=== PATIENT | male | born 1945 | race Caucasian/White ===

== ENCOUNTER → 2017-03-14 | Outpatient (CLI) | payer MEDICARE, BC ==
--- NOTE | 2017-03-14 13:31 | DRAGON STRESS TEST REPORT ---
EXERCISE CARDIOLITE STRESS TEST USING SINGLE PHOTON EMMISION COMPUTERIZED TOMOGRAPHIC. DATE OF PROCEDURE: March 14, 2017 INDICATION : Chest pain CARDIAC RISK FACTORS: Hypertension, family history of heart disease RESTING EKG: Sinus rhythm, no baseline ST segment changes noted. STRESS EKG: No significant ST segment changes noted at peak exercise. REASON FOR TERMINATION: Shortness of breath and fatigue.. PROCEDURE REPORT: Baseline heart rate 76 beats per minute with blood pressure of 140/80. Patient had no significant complaints. Patient exercised for total of 6 minutes and 04 seconds. Patient stopped exercise because of difficulty with keeping up with the treadmill and symptoms of shortness of breath. Peak heart rate 148, peak blood pressure 188/78 mmHg. CONCLUSIONS: No significant ST segment changes noted at adequate heart rate and blood pressure response. NUCLEAR DATA: At rest the patient was given 13.87 millicuries of technetium 99 sestamibi injected intravenously. As per protocol rest gated SPECT images were obtained. Subsequently the patient was given intravenous LexiScan at a dose of 0.4 mg in 5 mL intravenously, followed by flush with normal saline. Subsequently the stress dose of 42.2 millicuries of technetium 99 sestamibi was injected intravenously. As per protocol stress gated images were obtained. NUCLEAR INTERPRETATION: Both raw and processed data were used for interpretation. Visual, qualitative, computer-generated quantitative data was used. There was good myocardial uptake of technetium compound. Motion artifact and soft tissue attenuations were noted. Increased visceral uptake was noted. No definitive areas of transient perfusion defect noted. No definitive areas of fixed perfusion defect or scars noted. EKG gated imaging showed LV EF at 59 %, rest and stress gated EF similar visually. T. I D. ratio was 0.85. Lung heart ratio noted to be within normal limits 0.27. No significant extracardiac and abnormal radiotracer activities were noted. RV free wall uptake was noted to be WNL. IMPRESSION: Also refer to comments under nuclear interpretation. Also test results needs to be interpreted in the context of pretest probability. 1. There is no definitive scintigraphic evidence of exercised induced ischemia at adequate double product. Patient noted to have average exercise tolerance for patient age. 2. There is no definitive scintigraphic evidence of myocardial infarction/scar. 3. EKG gated imaging shows left ventricular ejection fraction of approximately 59 %. 4. Clinical correlation requested as occasionally single vessel disease or balanced ischemia could be missed. RECOMMENDATIONS: Aggressive risk factor modification, medical therapy. Clinical correlation with echocardiogram derived ejection fraction. No consider cardiology consultation and or follow-up if clinically indicated. I AM AVAILABLE FOR CARDIOLOGY CONSULTATION AND FOLLOWUP IF REQUESTED BY PMD Wale Ng M.D., RHODA Special Education Professor incoming freight clerk, Board certified in cardiovascular diseases, Nuclear cardiology, Echocardiography Cardiac CT and cardiac MRI Ph. [phone] [facility]
== END ==
LOC: RAD 07:40
PROVIDERS: ATTEND Family Medicine
DX: R07.9 Chest pain, unspecified (principal); I10 Essential (primary) hypertension
CPT/HCPCS: 93017; 78452; A9500; Q9969

== ENCOUNTER 2017-04-03 09:35 | Day surgery (SDC) | payer MEDICARE, BC ==
[2017-04-03] MEDS ORDERED: DIPHENHYDRAMINE HCL 50 MG/ML VIAL ONE (09:46)
[2017-04-03] MEDS ORDERED: ONDANSETRON HCL INJ/PF 4 MG/2 ML SDV ONE (09:46)
[2017-04-03] MEDS ORDERED: NALOXONE HCL INJ/PF 0.4 MG/1 ML SDV ONE (09:46)
[2017-04-03] MEDS ORDERED: FLUMAZENIL INJ 0.5 MG/5 ML VIAL ONE (09:46)
[2017-04-03] MEDS ORDERED: EPINEPHRINE INJ 1 MG/10 ML DISP.SYRIN ONE (09:47)
[2017-04-03] MEDS ORDERED: GLUCAGON,HUMAN RECOMB 1 MG INJ ONE (09:47)
[2017-04-03] MEDS: MIDAZOLAM 2 MG/2 ML INJ ONE ×2 (10:08→10:13)
[2017-04-03] MEDS: FENTANYL CITRATE INJ/PF 100 MCG/2 ML AMPUL ONE ×3 (10:10→10:15)
--- NOTE | 2017-04-03 10:25 | Operative Report ---
Operative Report DATE OF SURGERY: 04/03/17 Operative Report: The risks benefits and alternatives of the procedure explained to the patient in detail and informed consent is obtained.A GIF Olympus video scope was inserted into the patient's mouth and hypopharynx, the esophagus is identified intubated and insufflated, the scope was then advanced through the esophagus stomach and duodenum, retroflexion maneuver is done, the esophagus stomach and first and second portions of the duodenum examined PREOPERATIVE DIAGNOSIS: Epigastric pain POSTOPERATIVE DIAGNOSIS: Status post Ghulam-en-Y surgery. Gastritis in the pouch. Esophagitis versus Viramontes's status post biopsy OPERATION: EGD with biopsy SURGEON: MOHINDER GIRALDO ANESTHESIA: Moderate Sedation - 4 mg of Versed, 100 mcg of fentanyl. Conscious sedation monitoring time 30 minutes. TISSUE REMOVED OR ALTERED: Specimens obtained as noted COMPLICATIONS: None. ESTIMATED BLOOD LOSS: None. INTRAOPERATIVE FINDINGS: As described above. PROCEDURE: Patient tolerated procedure well. No immediate postprocedure complications are noted. Patient discharged in good condition. Discharge date 04/03/2017. Discharge diet: Regular. Discharge activity: Regular. 2-3 week follow-up to discuss findings. Patient is instructed to call the office or proceed to the emergency room should there be any further problems or questions. We will wait on biopsies. May need ablation.
[2017-04-03 11:35] VITALS: BP 159/88
== END 2017-04-03 11:35 | disposition home or self-care (01) ==
LOC: END 09:35
PROVIDERS: ATTEND Internal Medicine Gastroenterology
PROC: 0DB48ZX Excision of Esophagogastric Junction, Via Natural or Artificial Opening Endoscopic, Diagnostic (ICD-10-PCS; 2017-04-03)
PROC: 0DB68ZX Excision of Stomach, Via Natural or Artificial Opening Endoscopic, Diagnostic (ICD-10-PCS; principal; 2017-04-03 10:00)
DX: R10.13 Epigastric pain (principal); K29.70 Gastritis, unspecified, without bleeding; D64.9 Anemia, unspecified; I10 Essential (primary) hypertension; G62.9 Polyneuropathy, unspecified; E78.5 Hyperlipidemia, unspecified; K91.5 Postcholecystectomy syndrome
CPT/HCPCS: 43239; 88342 ×2; 88305 ×2; J2250; J3010; J0171; J1200; J1610; J2310; J2405; J3490

== ENCOUNTER 2017-04-16 12:47 | Day surgery (SDC) | payer MEDICARE, BC ==
[2017-04-16] MEDS ORDERED: NALOXONE HCL INJ/PF 0.4 MG/1 ML SDV ONE (12:57)
[2017-04-16] MEDS ORDERED: DIPHENHYDRAMINE HCL 50 MG/ML VIAL ONE (12:57)
[2017-04-16] MEDS ORDERED: ONDANSETRON HCL INJ/PF 4 MG/2 ML SDV ONE (12:57)
[2017-04-16] MEDS ORDERED: MIDAZOLAM 2 MG/2 ML INJ ONE ×2 (12:57)
[2017-04-16] MEDS ORDERED: FLUMAZENIL INJ 0.5 MG/5 ML VIAL ONE (12:58)
[2017-04-16] MEDS ORDERED: GLUCAGON,HUMAN RECOMB 1 MG INJ ONE (12:58)
[2017-04-16] MEDS ORDERED: EPINEPHRINE INJ 1 MG/10 ML DISP.SYRIN ONE (12:58)
[2017-04-16] MEDS: FENTANYL CITRATE INJ/PF 100 MCG/2 ML AMPUL ONE ×2 (13:14→13:16)
--- NOTE | 2017-04-16 13:48 | Operative Report ---
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 Conscious sedation monitoring time 30 minutes. TISSUE REMOVED OR ALTERED: None. COMPLICATIONS: None. ESTIMATED BLOOD LOSS: None. INTRAOPERATIVE FINDINGS: As described above. PROCEDURE: Patient tolerated procedure well. No immediate postprocedure complications are noted. Patient discharged in good condition. Discharge date 04/16/2017. Discharge diet: Regular. Discharge activity: Regular. 6 week follow-up to determine resolution of the Viramontes's Patient is instructed to call the office or proceed to the emergency room should there be any further problems or questions
[2017-04-16 14:26] VITALS: BP 112/69
== END 2017-04-16 14:25 | disposition home or self-care (01) ==
LOC: END 12:47
PROVIDERS: ATTEND Internal Medicine Gastroenterology
PROC: 0D558ZZ Destruction of Esophagus, Via Natural or Artificial Opening Endoscopic (ICD-10-PCS; principal; 2017-04-16 13:00)
DX: K22.710 Barrett's esophagus with low grade dysplasia (principal); I10 Essential (primary) hypertension; E78.5 Hyperlipidemia, unspecified; D64.9 Anemia, unspecified
CPT/HCPCS: 43270; J2250; J3010; J0171; J1200; J1610; J2310; J2405; J3490

== ENCOUNTER 2017-08-26 10:00 | Day surgery (SDC) | payer MEDICARE, BC ==
[~2017-08-26 10:00] MED LIST: PROPOFOL INJ 200 MG/20 ML VIAL IV ONE
[2017-08-26] MEDS ORDERED: SIMETHICONE 80 MG TAB.CHEW ONE (11:32)
[2017-08-26 12:11] VITALS: BP 123/73
--- NOTE | 2017-08-26 12:56 | Operative Report ---
Operative Report DATE OF SURGERY: 08/26/17 Operative Report: The risks, benefits and alternatives of the procedure including risks of bleeding, perforation requiring surgery are explained to the patient in detail and informed consent was obtained. The patient is taken back to the endoscopy suite and placed in the left, lateral decubital position. Timeout was called. Propofol medications administered. A rectal examination was done which did not reveal any masses, tears or fissures. An Olympus videoscope was inserted into the patient's rectum. The scope was then carefully advanced all the way to the cecum. The cecum was identified by the usual anatomical landmarks including the ileocecal valve as well as the appendiceal office. Photodocumentation is obtained. Prep was good. Scope was then sequentially pulled back via the various segments of the colon including the ascending colon, hepatic flexure, transverse colon, splenic flexure, descending colon finding to the rectosigmoid portions of the colon. Retroflexion maneuvers performed. PREOPERATIVE DIAGNOSIS: Change in bowel habits. Abdominal distention POSTOPERATIVE DIAGNOSIS: Mild right-sided colon inflammation status post biopsy. Redundancy of colon especially of the descending colon area OPERATION: Colonoscopy with biopsy SURGEON: MOHINDER GIRALDO ANESTHESIA: LMAC TISSUE REMOVED OR ALTERED: As noted above. COMPLICATIONS: None. ESTIMATED BLOOD LOSS: None. INTRAOPERATIVE FINDINGS: As noted above. PROCEDURE: Patient tolerated procedure well. No immediate postprocedure complications are noted. Patient discharged in good condition. Discharge date 08/26/2017. Discharge diet: Regular. Discharge activity: Regular. 2-3 week follow-up to discuss findings. Patient is instructed call the office or proceed to the emergency room should there be any further problems or questions. We will wait on pathology.
== END 2017-08-26 11:55 | disposition home or self-care (01) ==
LOC: END 10:00
PROVIDERS: ATTEND Internal Medicine Gastroenterology
PROC: 0DBF8ZX Excision of Right Large Intestine, Via Natural or Artificial Opening Endoscopic, Diagnostic (ICD-10-PCS; principal; 2017-08-26 12:30)
DX: K52.9 Noninfective gastroenteritis and colitis, unspecified (principal); I10 Essential (primary) hypertension; E78.5 Hyperlipidemia, unspecified; D64.9 Anemia, unspecified; G62.9 Polyneuropathy, unspecified; Z87.442 Personal history of urinary calculi; Z79.899 Other long term (current) drug therapy
CPT/HCPCS: 45380; 88305 ×2; A9270; J2704; 811

== ENCOUNTER → 2018-06-09 | Day surgery (SDC) | payer MEDICARE, BC ==
[~2018-06-09] MED LIST changes: +BUPIVACAINE HCL 0.5 % INJ/PF 30 ML SDV ONE; +METHYLPREDNISOLONE ACETATE INJ 80 MG/1 ML VIAL ONE; -PROPOFOL INJ 200 MG/20 ML VIAL IV ONE
--- NOTE | 2018-06-09 15:53 | RADIOLOGY REPORT (SQ) ---
EXAM DESCRIPTION: INJECT/ASPIR HIP/SHLDR/KNEE; FLUORO/NEEDLE PLACEMENT COMPLETED DATE/TIME: 06/09/2018 2:35 pm REASON FOR STUDY: M19.011 PRIMARY OSTEOARTHRITIS, RIGHT SHOULDER M19.011 PRIMARY OSTEOARTHRITIS, RI GHT SHOULDER COMPARISON: None. FLUOROSCOPY TIME: 11 seconds 1 digital fluoroscopic image saved to PACS. LIMITATIONS: None. PROCEDURE: SITE OF INJECTION: Right posterior glenohumeral joint LOCALIZING CONTRAST TYPE AND DOSE: 1 mL Omnipaque 300 MEDICATION TYPE AND DOSE: 80 mg of Depo-Medrol, 5 mL of 0.5% bupivacaine Using local anesthesia and sterile technique with fluoroscopic guidance, a 22 gauge spinal needle was advanced into the joint. Iodinated contrast was injected to verify intraarticular placement. This w as followed by therapeutic injection of the indicated medications. The needle was removed. There we re no immediate complications. Preprocedure pain level: 3/10. Postprocedure pain level: 1/10. IMPRESSION: THERAPEUTIC INJECTION OF THE RIGHT GLENOHUMERAL JOINT ABOVE. COMMENT: Patient medication list reviewed: Yes- Quality ID# [id number]:Eligible professional attests to doc umenting in the medical record they obtained, updated, or reviewed the patient's current medications. . Quality ID 145: Final reports for procedures using fluoroscopy that document radiation exposure saige kizzy, or exposure time and number of fluorographic images (if radiation exposure indices are not avail able) TECHNICAL DOCUMENTATION: JOB ID: [id number] [employer]- All Rights Reserved Reading location - IP/workstation name: [facility]
--- NOTE | 2018-06-09 15:53 | RADIOLOGY REPORT (SQ) ---
EXAM DESCRIPTION: INJECT/ASPIR HIP/SHLDR/KNEE; FLUORO/NEEDLE PLACEMENT COMPLETED DATE/TIME: 06/09/2018 2:35 pm REASON FOR STUDY: M19.011 PRIMARY OSTEOARTHRITIS, RIGHT SHOULDER M19.011 PRIMARY OSTEOARTHRITIS, RI GHT SHOULDER COMPARISON: None. FLUOROSCOPY TIME: 11 seconds 1 digital fluoroscopic image saved to PACS. LIMITATIONS: None. PROCEDURE: SITE OF INJECTION: Right posterior glenohumeral joint LOCALIZING CONTRAST TYPE AND DOSE: 1 mL Omnipaque 300 MEDICATION TYPE AND DOSE: 80 mg of Depo-Medrol, 5 mL of 0.5% bupivacaine Using local anesthesia and sterile technique with fluoroscopic guidance, a 22 gauge spinal needle was advanced into the joint. Iodinated contrast was injected to verify intraarticular placement. This w as followed by therapeutic injection of the indicated medications. The needle was removed. There we re no immediate complications. Preprocedure pain level: 3/10. Postprocedure pain level: 1/10. IMPRESSION: THERAPEUTIC INJECTION OF THE RIGHT GLENOHUMERAL JOINT ABOVE. COMMENT: Patient medication list reviewed: Yes- Quality ID# [id number]:Eligible professional attests to doc umenting in the medical record they obtained, updated, or reviewed the patient's current medications. . Quality ID 145: Final reports for procedures using fluoroscopy that document radiation exposure saige kizzy, or exposure time and number of fluorographic images (if radiation exposure indices are not avail able) TECHNICAL DOCUMENTATION: JOB ID: [id number] [employer]- All Rights Reserved Reading location - IP/workstation name: [facility]
== END ==
LOC: RAD 13:30
PROVIDERS: ATTEND Family Medicine
DX: M19.011 Primary osteoarthritis, right shoulder (principal)
CPT/HCPCS: 20610; 77002; J3490; J1040

== ENCOUNTER 2020-03-16 07:24 | Day surgery (SDC) | payer MEDICARE, BC ==
[2020-03-11 11:22] LABS: HEMATOCRIT 42.9 % (37.9-51.0); HEMOGLOBIN 14.6 g/dL (13.5-17.0); MEAN CORPUSCULAR HEMOGLOBIN 29.1 pg (27.0-33.4); MEAN CORPUSCULAR HGB CONC 34.2 g/dL (32.0-36.0); MEAN CORPUSCULAR VOLUME 85 fl (80-97); PLATELET COUNT 247 10^3/uL (150-450); RED BLOOD COUNT 5.03 10^6/uL (4.35-5.55); RED CELL DISTRIBUTION WIDTH 13.2 % (11.5-14.0); WHITE BLOOD COUNT 3.8 10^3/uL (4.0-10.5)
[2020-03-11 11:50] LABS: ANION GAP 8 (5-19); BLOOD UREA NITROGEN 19 mg/dL (7-20); CALCIUM 9.5 mg/dL (8.4-10.2); CARBON DIOXIDE 30 mmol/L (22-30); CHLORIDE 101 mmol/L (98-107); GLUCOSE 111 mg/dL (75-110); POTASSIUM 4.5 mmol/L (3.6-5.0)
[~2020-03-16 07:24] MED LIST changes: -BUPIVACAINE HCL 0.5 % INJ/PF 30 ML SDV ONE; +CEFAZOLIN 1 GM/D5W RTU 1 GM/50 ML RTUPB IV ONE; +CEFAZOLIN 1 GM/D5W RTU 1 GM/50 ML RTUPB IV PRN; +LACTATED RINGERS 1000 ML IV PRN; +LIDOCAINE 0.5% INJ-PF (5 MG/ML) 50 ML SDV SUBCUT PRN; -METHYLPREDNISOLONE ACETATE INJ 80 MG/1 ML VIAL ONE
[2020-03-16] MEDS ORDERED: FENTANYL CITRATE INJ/PF 250 MCG/5 ML AMPULE ONE (09:17)
[2020-03-16] MEDS ORDERED: MIDAZOLAM 2 MG/2 ML INJ ONE (09:18)
[2020-03-16] MEDS ORDERED: EPHEDRINE SULFATE INJ 50 MG/1 ML AMPULE ONE (09:18)
[2020-03-16] MEDS ORDERED: PROPOFOL INJ 200 MG/20 ML VIAL IV ONE (09:18)
[2020-03-16] MEDS ORDERED: BUPIVACAINE HCL 0.25 % INJ/PF (2.5 MG/1 ML) 30 ML VIAL ONE (09:34)
[2020-03-16] MEDS ORDERED: BUPIVACAINE INJ/PF LIPOSOME/PF 266 MG/20 ML SDV ONE (09:34)
[2020-03-16] MEDS ORDERED: ROPIVACAINE HCL 0.5% INJ/PF (5 MG/1 ML) 30 ML SDV ONE (09:36)
[2020-03-16] MEDS ORDERED: DIPHENHYDRAMINE HCL 50 MG/ML VIAL IV PRN (10:30)
[2020-03-16] MEDS ORDERED: ONDANSETRON HCL INJ/PF 4 MG/2 ML SDV IV PRN (10:30)
[2020-03-16] MEDS ORDERED: FENTANYL CITRATE INJ/PF 100 MCG/2 ML AMPUL IV PRN ×3 (10:30)
[2020-03-16] MEDS ORDERED: PROMETHAZINE HCL INJ 25 MG/1 ML VIAL IV PRN (10:30)
[2020-03-16] MEDS ORDERED: MORPHINE SULFATE 10 MG/ML INJ IV PRN (10:30)
[2020-03-16] MEDS ORDERED: MEPERIDINE HCL/PF INJ 25 MG/1 ML DISP.SYRIN IV PRN (10:30)
--- NOTE | 2020-03-16 11:33 | Operative Report ---
Operative Report DATE OF SURGERY: 03/16/20 PREOPERATIVE DIAGNOSIS: Left inguinal hernia POSTOPERATIVE DIAGNOSIS: Same, indirect OPERATION: 1. Left inguinal herniorrhaphy with large [employer] Ethicon Prolene mesh. 2. Deployment of Exparel into the subcutaneous tissue SURGEON: MARTITA MCDONNELL 1ST PASSENGER BOOKING CLERK: KAREEN ARMENDARIZ ANESTHESIA: GA TISSUE REMOVED OR ALTERED: Cord lipoma COMPLICATIONS: None ESTIMATED BLOOD LOSS: Scant INTRAOPERATIVE FINDINGS: See below PROCEDURE: Patient was seen in the preop holding area with a left inguinal region was marked by Dr. Mcdonnell. Patient was taken to the main operating room where general anesthesia was induced. The abdominal wall was clipped of hair, and the anesthesia team deployed a regional abdominal wall block. The left inguinal area and scrotal area was prepped and draped in sterile fashion Surgical plan and surgical timeout were conducted. Marking was made on the skin for planned left inguinal herniorrhaphy. The skin was anesthetized with quarter percent Marcaine then incised with a #10 blade approximately 6 and half centimeters in length. Subcutaneous tissue and Scot's fascia divided with electrocautery. Deeper tissue anesthetized with quarter percent Marcaine. The external oblique aponeurosis was incised along the direction of its fibers with a #10 blade. The contents of the inguinal canal were now mobilized. The ilioinguinal nerve was identified and preserved throughout the dissection. Superior and inferior fascial flaps were developed bluntly. Contents of the inguinal canal were now surrounded with a [place] loop drain. The findings are significant for a weekend inguinal floor in the direct space but no discrete hernia. We now interrogated the contents within the loop of the [place] drain. The findings here were consistent with a moderate sized cord lipoma, and a indirect hernia sac with a fibro-fatty extension.. We dissected the lipoma off of the cord structures, and amputated it several centimeters away from the abdominal wall, ligating its pedicle with a 2-0 Vicryl suture. The fibrofatty extension and indirect sac were dissected free of surrounding structures and reduced into the retroperitoneal cavity. We now opened up the retroperitoneal space bluntly with index finger and sponge dissection. We brought onto the field a large Ethicon [facility] Prolene hernia system, not , and deployed the inner component into the retroperitoneal space by explaining it out circumferentially. The external component was trimmed to an appropriate configuration to reconstruct the inguinal floor. Using approximately 8-0 PDS sutures, the external layer was sewed to Poupart's ligament and conjoined tendon, sparing the ilioinguinal nerve. We cut in upside down U in the external layer to accommodate the cord structures. At the conclusion of mesh implantation, we were satisfied with the reconstruction of the inguinal floor. The external oblique aponeurosis was closed with 2-0 Vicryl, Scot's fascia with 3-0 Vicryl, and skin approximated with's kin glue. 30 cc of dilute Exparel was deployed into the subcutaneous tissues. Patient tolerated the procedure well, extubated, and taken to recovery in stable condition The physician commissary assistant, Ms. Andujar, provided assistance during this case by: retracting tissue, instillation of local anesthesia and closure of skin incisions.
[2020-03-16] MEDS ORDERED: OXYCODONE-ACETAMINOPHEN 5-325 MG TABLET PO PRN (11:36)
--- NOTE | 2020-03-16 11:36 | Discharge Summary ---
Discharge Summary (SDC) - Discharge Final Diagnosis: Left inguinal hernia Date of Surgery: 03/16/20 Discharge Date: 03/16/20 Condition: Good Treatment or Instructions: [facility] [address], [place] [address] Discharge Instructions: Open Abdominal Procedures (Hernia, Bowel Surgery) 1.General Information: a. DO NOT DRIVE a car or operative machinery for 1-2 weeks or as long as taking Narcotic pain medication. b. DO NOT consume alcohol, tranquilizers, sleeping medication, or any non- prescribed medication for 24 hours unless approved by your doctor or as long as taking pain medication. c. DO NOT make important decisions or sign any important papers for the first 24 hours after surgery. d. When discharged home the same day as surgery have a responsible person with you the first night. 2.Activity Restriction: 6 weeks a. Avoid heavy lifting (> 10-15 lbs), straining abdominal muscles and sports, mowing lawn, vacuum tube cleaner and bending over a lot. b. Walking is important to avoid blood clots in the legs and deep breathing can prevent pneumonia. c. If it fine to go for walks, up and down steps, and ride in a car. 3.Treatment: a. You may shower 24 hours after surgery and shower then daily is fine, but you should not bathe in a tub or go swimming for 2 weeks. Do not remove or pick at skin glue. It will fall off on its own. You may cover the wound with gauze and tape if it is more comfortable. c. Do not use oils, powders, or lotion on your incision. 4.Medications: a. You may take prescription tablets for pain if needed, one every 6 hours (Toradol___). Do not take additional NSAIDs (ibuprofen, advil, aleve, goodies powder, ect) with Toradol. You may take Tylenol with Toradol. c. You may resume all normal medications unless a change is specified by your doctors. 5.Diet: a. If going home the same day as surgery start with clear liquids, and if you do well then advance to normal foods low inf fat and protein. Smaller portion size may be isaacs the first night. b. When discharged after hospital stay you may resume a normal diet. 6.Notify Physician If: a. Pain is not relieved by pain medication b. Persistent nausea and vomiting c. Chills, fever (above 101) d. Persistent bleeding or swelling at the operative site e. Unable to urinate for 6-8 hours f. Increased redness, drainage, or foul smelling discharge from incision 7. Follow Up Care: a. Please call our office to schedule an appointment with your doctor for 2 weeks. In the event of any postoperative problems or questions you may call our office during business hours or the On-Call surgeon through the payroll machine operator at [facility]. [facility] [phone] [facility] [phone] (Ask for the surgeon superintendent drilling and production) b. I understand the instructions for my postoperative care as described above and a copy has been given to me. Witness Patient/Significant Other Date Prescriptions: Ketorolac Tromethamine [Toradol 10 mg Tablet] 10 mg PO Q6HP PRN #20 tablet PRN Reason: Referrals: IMAN DURAN MD [Primary Care Provider] - Discharge Diet: As Tolerated Discharge Activity: Balance Activity w/Rest, No Lifting Over 10 Pounds, No Lifting/Push/Pulling, Walk Frequently Report the Following to Your Physician Immediately: Nausea, Vomiting, Increase in Pain, Fever over 101 Degrees, Unusual Bleeding, Redness, Swelling, Warmth, Increased Soreness, Drainage-Foul Smelling
[2020-03-16] MEDS ORDERED: OXYCODONE-ACETAMINOPHEN 5-325 MG TABLET ONE (12:12)
[2020-03-16 13:16] VITALS: BP 134/76
[2020-03-16] MEDS ORDERED: SUCCINYLCHOLINE CHLORIDE INJ 200 MG/10 ML VIAL ONE (14:30)
[2020-03-16] MEDS ORDERED: DEXAMETHASONE SOD PHOSPHATE INJ 4 MG/1 ML VIAL ONE (14:30)
[2020-03-16] MEDS ORDERED: ONDANSETRON HCL INJ/PF 4 MG/2 ML SDV ONE (14:30)
== END 2020-03-16 13:05 | disposition home or self-care (01) ==
LOC: OROUT 07:24
PROVIDERS: ATTEND Surgery
DX: K40.90 Unilateral inguinal hernia, without obstruction or gangrene, not specified as recurrent (principal); K21.9 Gastro-esophageal reflux disease without esophagitis; K91.1 Postgastric surgery syndromes; E78.5 Hyperlipidemia, unspecified; D64.9 Anemia, unspecified; I83.90 Asymptomatic varicose veins of unspecified lower extremity; Z90.3 Acquired absence of stomach [part of]; Z87.891 Personal history of nicotine dependence; Z79.899 Other long term (current) drug therapy; R01.1 Cardiac murmur, unspecified; N40.0 Benign prostatic hyperplasia without lower urinary tract symptoms; G57.92 Unspecified mononeuropathy of left lower limb; Z03.818 Encounter for observation for suspected exposure to other biological agents ruled out
CPT/HCPCS: 36415; 85027; 80048; 88304 ×2; 49505; C1781; U0003; J2795; J2250; J0690; J1100; J3490; J3010; A9270; J0330; J2405; J2704; C9290; C9803; 64486; 76942; 830; 87635

== ENCOUNTER 2020-06-03 19:56 | Emergency (ER) | payer MEDICARE, BC ==
[2020-06-03 20:21] VITALS: BP 141/69
[2020-06-03] MEDS ORDERED: NORMAL SALINE 1000 ML 1,000 ML IV ONE (21:51)
--- NOTE | 2020-06-03 21:52 | ER Document Report ---
ED Medical Screen (RME) - General Chief Complaint: Nausea Stated Complaint: NAUSEA/POST OP ISSUES Time Seen by Provider: 06/03/20 21:41 Primary Care Provider: IMAN DURAN MD [Primary Care Provider] - Follow up as needed TRAVEL OUTSIDE OF THE [place] IN LAST 30 DAYS: No - HPI Notes: Patient is a 75 y/o male who presents for nausea and vomiting that began earlier today. Patient had a neck fusion done on 05/31/[address] Silveira at [facility] Since his surgery he has had swelling to the sides of his neck making it difficult for him to eat or drink. They called Dr. Silveira today and patient was prescribed steroids. Earlier this evening he began to vomit and his became concerned as he has not been eating or drinking much these past few days. Patient denies chest pain and shortness of breath. - Related Data Allergies/Adverse Reactions: No Known Allergies Allergy (Verified 06/03/20 21:21) Past Medical History - Past Medical History Cardiac Medical History: Denies: Hx Coronary Artery Disease, Hx Heart Attack, Hx Hypertension Pulmonary Medical History: Reports: Hx Bronchitis, Hx Pneumonia - HX Denies: Hx Asthma, Hx COPD Neurological Medical History: Denies: Hx Cerebrovascular Accident, Hx Seizures GI Medical History: Reports: Hx Gastritis, Hx Gastroesophageal Reflux Disease, Hx Hepatitis - 6 YEARS,DOESNT KNOW WHAT KIND,"KIND WHERE COULDNT HAVE SOFT CANDY,ONLY HARD, Hx Hiatal Hernia - SORT OF,PARALYZED STOMACH FROM SX, Hx Ulcer - BLEEDING Musculoskeltal Medical History: Reports Hx Arthritis, Reports Hx Musculoskeletal Trauma Psychiatric Medical History: Reports: Hx Depression Infectious Medical History: Reports: Hx Hepatitis - 6 YEARS,DOESNT KNOW WHAT KIND,"KIND WHERE COULDNT HAVE SOFT CANDY,ONLY HARD Past Surgical History: Reports: Hx Abdominal Surgery - Ghulam-en-Y, Hx Cholecystectomy, Hx Herniorrhaphy, Hx Orthopedic Surgery. Denies: Hx Open Heart Surgery, Hx Pacemaker - Immunizations Hx Diphtheria, Pertussis, Tetanus Vaccination: Yes Physical Exam - Vital signs Vitals: Temp Pulse Resp BP Pulse Ox 99.0 F 99 16 141/69 H 94 06/03/20 20:20 06/03/20 20:20 06/03/20 20:20 06/03/20 20:20 06/03/20 20:20 - HEENT Neck: Other - Swelling noted to the sides of his neck. Bandage noted to his left anterior neck, no surrounding erythema or warmth. Course - Re-evaluation Re-evalutation: I have greeted and performed a rapid initial assessment of this patient. A comprehensive ED assessment and evaluation of the patient, analysis of test results and completion of medical decision making process will be conducted by an additional ED providers. - Vital Signs Vital signs: Temp Pulse Resp BP Pulse Ox 99.0 F 99 16 141/69 H 94 06/03/20 20:20 06/03/20 20:20 06/03/20 20:20 06/03/20 20:20 06/03/20 20:20 Doctor's Discharge - Discharge Referrals: IMAN DURAN MD [Primary Care Provider] - Follow up as needed
[2020-06-03 22:51] LABS: HEMATOCRIT 42.1 % (37.9-51.0); HEMOGLOBIN 14.6 g/dL (13.5-17.0); MEAN CORPUSCULAR HEMOGLOBIN 29.6 pg (27.0-33.4); MEAN CORPUSCULAR HGB CONC 34.7 g/dL (32.0-36.0); MEAN CORPUSCULAR VOLUME 85 fl (80-97); PLATELET COUNT 249 10^3/uL (150-450); RED BLOOD COUNT 4.94 10^6/uL (4.35-5.55); RED CELL DISTRIBUTION WIDTH 13.2 % (11.5-14.0); WHITE BLOOD COUNT 8.2 10^3/uL (4.0-10.5)
[2020-06-03 23:06] LABS: ALBUMIN 4.4 g/dL (3.5-5.0); ALKALINE PHOSPHATASE 203 U/L (38-126); ANION GAP 13 (5-19); ASPARTATE AMINO TRANSFERASE 412 U/L (17-59); BILIRUBIN,DIRECT 0.1 mg/dL (0.0-0.4); BILIRUBIN,TOTAL 0.8 mg/dL (0.2-1.3); BLOOD UREA NITROGEN 18 mg/dL (7-20); CARBON DIOXIDE 26 mmol/L (22-30); CHLORIDE 94 mmol/L (98-107); GLUCOSE 178 mg/dL (75-110); POTASSIUM 4.6 mmol/L (3.6-5.0); TOTAL PROTEIN 7.9 g/dL (6.3-8.2)
[2020-06-03 23:16] LABS: APPEARANCE,URINE SLIGHTLY-CLOUDY; BILIRUBIN,URINE NEGATIVE (NEGATIVE); GLUCOSE, URINE NEGATIVE (NEGATIVE); KETONES,URINE 20 mg/dL (NEGATIVE); LEUKOCYTE ESTERASE,URINE NEGATIVE (NEGATIVE); NITRITE,URINE NEGATIVE (NEGATIVE); PROTEIN,URINE 100 mg/dL (NEGATIVE); URINE SPECIFIC GRAVITY 1.028; UROBILINOGEN,URINE NEGATIVE mg/dL (<2.0)
[2020-06-03 23:18] LABS: COLOR,URINE YELLOW
[2020-06-03 23:51] LABS: ABSOLUTE LYMPHOCYTES# (MANUAL) 0.4 10^3/uL (0.5-4.7); ABSOLUTE MONOCYTES # (MANUAL) 0.5 10^3/uL (0.1-1.4); BASOPHILS % (MANUAL) 0 % (0-2); EOSINOPHILS % (MANUAL) 0 % (0-6); LYMPHOCYTES % (MANUAL) 5 % (13-45); MONOCYTES % (MANUAL) 6 % (3-13); PLATELET COMMENT ADEQUATE; SEGMENTED NEUTROPHILS % (MAN) 89 % (42-78); TOTAL CELLS COUNTED 100
[2020-06-03 23:52] LABS: HYPERSEGMENTED NEUTROPHILS PRESENT
[2020-06-03 23:53] LABS: POIKILOCYTOSIS SLIGHT; POLYCHROMASIA SLIGHT
== END 2020-06-04 00:15 | disposition left against medical advice (07) ==
LOC: ER 19:56
DX: R11.2 Nausea with vomiting, unspecified (principal)
CPT/HCPCS: 36415; 80053; 81001; 85025; 99281